=== PATIENT | female | born 1960 | race Caucasian/White ===

== ENCOUNTER → 2024-06-12 | Outpatient (CLI) | payer MEDICARE, SELFPAY ==
--- NOTE | 2024-06-12 10:28 | RAD_ITS ---
HISTORY: PAIN. TECHNIQUE: XR Hand Min 3 Views. COMPARISON: None. FINDINGS: BONES : No acute fracture identified. Small erosion of the scaphoid. Mild osteopenia. JOINTS: No dislocation. Moderate degenerative change with joint space narrowing and subchondral cysts. RAD/Hand Min 3 Views IMPRESSION: No acute fracture or dislocation identified in the right hand. Arthritis with small erosion. Electronically Signed: Shirin Carranza MD at 15:35 EDT ,
--- NOTE | 2024-06-12 10:28 | RAD_ITS ---
HISTORY: PAIN. TECHNIQUE: XR Knee Complete 4 Views or More. COMPARISON: None. FINDINGS: BONES : No acute fracture identified. Small degenerative osteophytes. JOINTS: No dislocation. Joint spaces maintained. SOFT TISSUES: Medial surgical clips with peripheral vascular disease noted. RAD/Knee 4 or More Views IMPRESSION: No acute fracture or dislocation identified in the right knee. Electronically Signed: Shirin Carranza MD at 15:25 EDT ,
--- NOTE | 2024-06-12 10:28 | RAD_ITS ---
HISTORY: PAIN. TECHNIQUE: XR Hand Min 3 Views. COMPARISON: None. FINDINGS: BONES : No acute fracture identified. Mild osteopenia. Small periarticular erosions of the second middle phalanx and third proximal phalanx. JOINTS: No dislocation. Moderate degenerative changes with joint space narrowing and subchondral cysts. RAD/Hand Min 3 Views IMPRESSION: No acute fracture or dislocation identified in the left hand. Arthritis with small erosions as above. Electronically Signed: Shirin Carranza MD at 15:33 EDT ,
--- NOTE | 2024-06-12 10:28 | RAD_ITS ---
HISTORY: PAIN. TECHNIQUE: XR Knee Complete 4 Views or More. COMPARISON: None. FINDINGS: BONES : No acute fracture identified. Small degenerative osteophytes. JOINTS: No dislocation. Joint spaces maintained. SOFT TISSUES: Medial surgical clips with peripheral vascular disease present. RAD/Knee 4 or More Views IMPRESSION: No acute fracture or dislocation identified in the left knee. Electronically Signed: Shirin Carranza MD at 15:24 EDT ,
[2024-06-12 12:32] LABS: Erythrocyte Sedimentation Rate 25 mm/hr (0-30)
[2024-06-12 12:35] LABS: Absolute Lymphocyte Count 2.15 X10^3/uL (0.83-4.51); Absolute Neutrophil Count 0.2 X10^3/uL (2.0-7.7); Eosinophil# 0.18 X10^3/uL; Eosinophils% 5.2 % (0-5); Hematocrit 32.5 % (37-47); Hemoglobin 10.9 g/dL (12.0-15.0); Lymphocyte # 2.15 X10^3/ul (0.83-4.51); Lymphocyte % 62.7 % (19-41); Mean Corp Hgb Conc 33.5 g/dL (32-36); Mean Corpuscular Hgb 29.9 pg (27.0-32.0); Mean Corpuscular Volume 89.3 fL (81-99); Monocyte# 0.86 X10^3/uL; Monocyte% 25.1 % (0-10); NRBC Flagged by Analyzer 0 % (0-5); Neutrophil # 0.21 X10^3/uL (2.7-7.7); Neutrophil % 6.1 % (47-70); POSITIVE DIFFERENTIAL YES; Platelet Count 606 K/mm3 (150-450); RBC Distribution Width CV 14.4 % (11.6-14.6); RBC Distribution Width SD 45.2 fl (35.1-43.9); Red Blood Count 3.64 M/mm3 (4.2-5.4); White Blood Count 3.4 K/mm3 (4.4-11.0)
[2024-06-12 12:36] LABS: Differential Indicated SCAN CRITERIA MET
[2024-06-12 12:59] LABS: ALB/GLOB Ratio 0.8 RATIO (0.9-2.4); AST(SGOT) 13 U/L (15-37); Alanine Aminotransfer ALT/SGPT 41 U/L (13-56); Albumin, Serum 3.2 g/dL (3.2-5.0); Alkaline Phosphatase 69 U/L (45-117); Anion Gap 7 (5-15); BUN 4 mg/dL (7-18); BUN/Creat Ratio 6.9 RATIO (10-20); Chloride 102 mmol/L (98-107); Creatinine, Serum 0.58 mg/dL (0.55-1.02); EST Glomerular Filtration Rate 111 mL/min (>60); Est Glom Filt Rate - Afr Amer 134 mL/min (>60); Globulin 4.1 g/dL (2.2-4.2); Glucose 195 mg/dL (74-106); Potassium 3.2 mmol/L (3.5-5.1); Protein, Total 7.3 g/dL (6.4-8.2); Sodium Level 138 mmol/L (136-145)
[2024-06-12 13:26] LABS: Hepatitis B Surface Antibody Non-Reactive; Hepatitis B Surface Antigen Non-Reactive (Nonreactive); Hepatitis C Antibody Non-Reactive (Nonreactive)
[2024-06-13 11:10] LABS: ANTINUCLEAR ANTIBODIES DIRECT Negative (Negative)
[2024-06-13 12:09] LABS: CCP IgG Antibodies > 250 units (0-19)
== END | disposition home or self-care (01) ==
LOC: MTLAB 10:26
PROVIDERS: PCP Family Medicine; Referring Provider Internal Medicine Rheumatology; Visit Provider Internal Medicine Rheumatology
DX: M05.79 Rheumatoid arthritis with rheumatoid factor of multiple sites without organ or systems involvement (principal); M17.0 Bilateral primary osteoarthritis of knee
CPT/HCPCS: 36415; 73130; 73564; 80053; 85025; 85652; 86038; 86140; 86200; 86431; 86706; 86803; 87340